=== PATIENT | male | born 1965 | race Caucasian/White ===

== ENCOUNTER 2022-07-10 05:57 | Inpatient (IN) ==
[2022-07-10 06:47] LABS: Basophils # (auto) 0.06 K/uL (0-0.2); Basophils % (auto) 0.6 %; Eosinophils # (auto) 0.18 K/uL (0-0.50); Eosinophils % (auto) 1.7 %; Hematocrit (blood only) 44.4 % (42.0-52.0); Hemoglobin 15.7 g/dl (14.0-18.0); Immature Granulocytes # (auto) 0.05 K/uL (0.01-0.20); Immature Granulocytes % (auto) 0.5 %; Lymphocytes # (auto) 1.95 K/uL (1.2-3.4); Mean Corpuscular Hemoglobin 32.4 pg (25.0-34.0); Mean Corpuscular Hgb Conc 35.4 g/dL (32.0-36.0); Mean Corpuscular Volume 91.5 fL (80.0-100.0); Mean Platelet Volume 7.9 fL (9.4-12.4); Monocytes # (auto) 1.05 K/uL (0.11-0.59); Monocytes % (auto) 9.7 %; Neutrophils # (auto) 7.54 K/uL (1.40-6.50); Neutrophils % (auto) 69.5 %; Platelet Count 346 K/uL (130-400); RDW Coefficient of Variation 12.8 % (11.5-14.5); RDW Standard Deviation 42.8 fL (36.4-46.3); Red Blood Count 4.85 M/uL (4.70-6.10); White Blood Count 10.83 K/ul (4.8-10.8)
[2022-07-10] MEDS ORDERED: SODIUM CHLORIDE 0.9% 1000ML 1,000 ML IV ONE (06:48)
[2022-07-10] MEDS ORDERED: dexAMETHasone**PF** 10 MG/ML VIAL IV ONE (06:48)
[2022-07-10] MEDS ORDERED: KETOROLAC TROMETHAMINE 15 MG/ML VIAL IV STA (06:48)
[2022-07-10] MEDS ORDERED: ACETAMINOPHEN 1,000 MG/100 ML VIAL IV STA (06:51)
[2022-07-10] MEDS ORDERED: AMPICILLIN/SULBACTAM SOD 3,000 MG in 0.9 % SODIUM CHLORIDE 100 ML IV STA (06:51)
--- NOTE | 2022-07-10 06:53 | XRay Report ---
XR chest 1V portable CLINICAL HISTORY: Chest pain, nonspecific COMPARISON STUDY: No previous studies for comparison. FINDINGS: Lung volumes are normal. Lungs are clear. There is no pneumothorax or pleural effusion. Car diac size is normal. Mediastinal contours are normal. There is no evidence for pulmonary edema. IMPRESSION: No acute cardiopulmonary findings. ACT 112: Negative or not required by law. Electronically signed by: Juan Kerr M.D. 07/10/2022 6:52 AM
[2022-07-10 07:06] LABS: Albumin Globulin Ratio 1.3 (0.9-2); Albumin Level 4.4 gm/dl (3.4-5.0); BUN Creatinine Ratio 11.5 (10-20); Bilirubin,Total 0.5 mg/dl (0.2-1.0); Calcium 9.7 mg/dl (8.6-10.3); Creatinine Clr Calc Pharmacy 97.5 ml/min; Est GFR (African American) 116.1 ml/min; Est GFR (Non-African American) 100.2 ml/min; Globulin 3.4 gm/dl (2.5-4.0); Potassium 3.2 mmol/L (3.5-5.1); Total Protein 7.8 gm/dl (6.0-8.3)
[2022-07-10 07:12] LABS: Troponin I High Sensitivity 4.2 pg/ml (0-20)
[2022-07-10 07:14] LABS: INR 0.9 (0.9-1.1); Partial Thromboplastin Time 28.9 Seconds (21.0-31.0); Prothrombin Time 10.3 Seconds (9.0-12.0)
[2022-07-10 07:23] LABS: D Dimer 760 ug/L FEU (0-500)
[2022-07-10] MEDS ORDERED: OPTIRAY 320 500ml IV ONE (07:50)
--- NOTE | 2022-07-10 07:53 | Emergency Department Note ---
Impression & Plan Acute osteomyelitis of maxilla, Atypical chest pain, Abscess, dental ED Provider Note NAME: JEANNE WARD AGE: 56 SEX: M ARRIVES VIA: Walk-In INFORMANT: Patient ED PROVIDER(S): Alberto Smith MD CHIEF COMPLAINT: Chest pain, dental pain/infection PLAN: Disposition: Admit MEDICAL DECISION MAKING: The patient is a pleasant 56-year-old gentleman with a past medical history of who presents to the emergency department via walk-in for evaluation of constant substernal chest pain that began last night in the setting of having worsening dental pain for the past 4 days where he was seen by urgent care yesterday and started on antibiotics and reports he was told to come to emergency department if he were to have worsening pain, swelling which he feels has occurred. He denies any fevers, nausea, vomiting, diarrhea or urinary symptoms. The patient reports that he has a schedule appointment with a dentist on July 18. He does report a history of acid reflux but has not had issues in some time. This is more when he used to chew tobacco regularly. The patient denies any history of IV drug use or drug use otherwise. On my evaluation the patient is uncomfortable but no acute distress, afebrile with stable vital signs. He appears clinically dry. He has poor dentition with all remaining teeth remnants with extensive decay and with moderate upper and lower anterior gingival edema/fluctuance. There is no oropharyngeal edema, tongue elevation or trismus. EKG without overt acute ischemia. CXR negative for acute cardiopulmonary process. WBC 10.8K with neutrophil predominance without left shift. H/H and platelets within normal limits. Chemistry without metabolic acidosis. Electrolytes and LFTs unremarkable. Initial high-sensitivity troponin 6.2, within normal limits. Lipase within normal limits. D-dimer was elevated at 760, ordered from triage critical pathways. COVID-19 RNA, RHONDA test was negative. CT of the chest was negative for PE. Emphysema is noted. Incidental lung nodule present. CT of the face demonstrates extensive odontogenic disease with numerous dental caries and periapical abscesses. In particular, note is made of a 1.7 x 1.4 cm focus of bony erosion within the left anterior maxilla with associated left maxillary central and lateral incisors that may reflect periapical abscess as well as the possibility of osteomyelitis. A 1.5 x 1 cm abscess anterior to the left maxilla is adjacent. The patient was treated with IV fluid hydration, APAP, Toradol, dexamethasone and IV Unasyn. Case was discussed with Dr. Trevino, [facility] surgery. Appreciate consultation and recommendations. He did evaluate the patient at the bedside and recommends admission to medicine hospitalist service for IV antibiotics and he will reassess the patient tomorrow to assess surgical plan. Patient is also in agreement with this plan. Case was discussed with Chantel Swenson [facility] with Dr. Kelly [facility] hospitalist, who will evaluate the patient for admission. Triage Nursing notes reviewed and agree them. Prior/outside medical records reviewed Vital Signs: reviewed Differential diagnosis: Dental abscess, osteomyelitis, pharyngitis, [employer]IT[employer]IATE, RPA, ACS, PE considered among others. ER treatment provided: See below. Diagnostics interpreted by me: ECG: Normal sinus rhythm with sinus arrhythmia, 91 bpm, no ectopy, no overt ST elevation or depression, QTc 420, QRS 72. Cardiac Monitoring: An order for continuous cardiac monitoring was placed and demonstrated Normal sinus rhythm with sinus arrhythmia, 91 bpm, no ectopy Laboratory studies: See below Imaging studies: See below Consultation(s): Dr. Trevino, [facility] surgery Chantel Swenson [facility] with Dr. Kelly [facility] hospitalist HPI: The patient is a pleasant 56-year-old gentleman with a past medical history of who presents to the emergency department via walk-in for evaluation of constant substernal chest pain that began last night in the setting of having worsening dental pain for the past 4 days where he was seen by urgent care yesterday and started on antibiotics and reports he was told to come to emergency department if he were to have worsening pain, swelling which he feels has occurred. He denies any fevers, nausea, vomiting, diarrhea or urinary symptoms. The patient reports that he has a schedule appointment with a dentist on July 18. He does report a history of acid reflux but has not had issues in some time. This is more when he used to chew tobacco regularly. The patient denies any history of IV drug use or drug use otherwise. ROS: See above HPI for pertinent positives & negatives. A total of 10 systems reviewed and were otherwise negative. VITALS:See Below PHYSICAL EXAMINATION: GENERAL: Awake, alert, uncomfortable-appearing, in no distress HENT: Normocephalic, atraumatic. Poor dentition with all remaining teeth remnants with extensive decay and with moderate upper and lower anterior gingival edema/fluctuance. There is no oropharyngeal edema, tongue elevation or trismus. EYES: Normal conjunctiva. Sclera non-icteric. NECK: Supple. No nuchal rigidity. FROM. No JVD. RESPIRATORY: Clear to auscultation. CARDIAC: Regular rate, normal rhythm. Extremities warm and well perfused. Pulses equal. ABDOMEN: Soft, non-distended. No tenderness to palpation. No rebound or guarding. No masses. RECTAL: Deferred. MUSCULOSKELETAL: Chest examination reveals no tenderness. The back is symmetric al on inspection without obvious abnormality. There is no CVA tenderness to palpation. No joint edema. LOWER EXTREMITIES: Calves are equal size bilaterally and non-tender. No edema. No discoloration. NEURO: Normal sensorium. No sensory or motor deficits noted. SKIN: No rash or jaundice noted. ED COURSE: Critical Care: I have personally spent greater than 35 minutes of critical care time in the direct management of this patient. This includes bedside care, interpretation of diagnostic studies, and testing, discussion with consultants, patient, and family members, and other required patient management activities. This 35 minutes is in excess of all separately billable procedures. Alberto Smith MD Past Med/Surg History Medical History GERD (gastroesophageal reflux disease) Tobacco use disorder Family History Other Family history non-contributory Social History Smoking Status: Current every day smoker Cigarettes Per Day: 30; Do You Dip or Chew Tobacco: No; Tobacco Cessation Education Requested by Patient: No Hx Alcohol Use: Yes Alcohol type: beer Hx Substance Use: No Preferred Language: Wallisian Vascular Physician Required: No Current Living Situation: Significant Other Current Living Situation Comment: House w/ stairs to cellar Feels Safe at Home: Yes Safety Concerns: Feels Safe At This Time Assistive Devices: Glasses Assistive Devices Comment: reading glasses Allergies Allergies Allergy/AdvReac Type Severity Reaction Status Date / Time No Known Allergies Allergy Unverified 07/10/22 08:48 Home Meds Home Medications Medication Instructions Recorded Confirmed penicillin V potassium 500 mg 500 mg PO BID 07/10/22 07/10/22 tablet Results & Data (ED) Vital Signs Vital Signs - 24 hr 07/10/22 06:01 07/10/22 06:23 07/10/22 06:25 Temperature 36.3 C L Temperature Source Temporal Artery Scan Pulse Rate 90 87 Pulse Rate from SpO2 Sensor Respiratory Rate 22 Respiratory Effort / Characteristics Non-Labored Blood Pressure 132/77 Blood Pressure Mean 95 Pulse Oximetry 97 98 Oxygen Delivery Method Room Air Room Air Sepsis Recent Fever Within 48 Hours No Sepsis New/Unexplained Change in Mental Status No Sepsis Action Taken by Nursing No Action Required 07/10/22 07:00 07/10/22 07:10 07/10/22 07:20 Temperature Temperature Source Pulse Rate 74 70 72 Pulse Rate from SpO2 Sensor 77 70 73 Respiratory Rate 19 20 21 Respiratory Effort / Characteristics Blood Pressure Blood Pressure Mean Pulse Oximetry 98 98 100 Oxygen Delivery Method Sepsis Recent Fever Within 48 Hours Sepsis New/Unexplained Change in Mental Status Sepsis Action Taken by Nursing 07/10/22 07:53 07/10/22 07:53 07/10/22 10:15 Temperature Temperature Source Pulse Rate 68 68 Pulse Rate from SpO2 Sensor Respiratory Rate 21 Respiratory Effort / Characteristics Blood Pressure 127/65 Blood Pressure Mean 85 Pulse Oximetry Oxygen Delivery Method Sepsis Recent Fever Within 48 Hours Sepsis New/Unexplained Change in Mental Status Sepsis Action Taken by Nursing Laboratory Data Attestation: I reviewed the patient's lab results. 07/10/22 06:20 07/10/22 06:20 Lab Results 07/10/22 07/10/22 07/10/22 Range/Units 06:20 06:20 06:20 WBC 10.83 H (4.8-10.8) K/ul RBC 4.85 (4.70-6.10) M/uL Hgb 15.7 (14.0-18.0) g/dl Hct 44.4 (42.0-52.0) % MCV 91.5 (80.0-100.0) fL MCH 32.4 (25.0-34.0) pg MCHC 35.4 (32.0-36.0) g/dL RDW Std Deviation 42.8 (36.4-46.3) fL RDW Coeff of Alisson 12.8 (11.5-14.5) % Plt Count 346 (130-400) K/uL MPV 7.9 L (9.4-12.4) fL Immature Gran % (Auto) 0.5 % Neut % (Auto) 69.5 % Lymph % (Auto) 18.0 % [place] % (Auto) 9.7 % Eos % (Auto) 1.7 % Baso % (Auto) 0.6 % Neut # (Auto) 7.54 H (1.40-6.50) K/uL Lymph # (Auto) 1.95 (1.2-3.4) K/uL [place] # (Auto) 1.05 H (0.11-0.59) K/uL Eos # (Auto) 0.18 (0-0.50) K/uL Baso # (Auto) 0.06 (0-0.2) K/uL Immature Gran # (Auto) 0.05 (0.01-0.20) K/uL PT 10.3 (9.0-12.0) Seconds INR 0.9 (0.9-1.1) APTT 28.9 (21.0-31.0) Seconds PTT Ratio 1.0 D-Dimer 760 H* (0-500) ug/L FEU Sodium 142 (136-145) mmol/L Potassium 3.2 L (3.5-5.1) mmol/L Chloride 104 (98-107) mmol/L Carbon Dioxide 29 (21-32) mmol/L Anion Gap 9 (3-11) BUN 9 (6-23) mg/dl Creatinine 0.78 (0.6-1.4) mg/dl Est Cr Clr Drug Dosing 97.5 ml/min Est GFR ( Amer) 116.1 ml/min Est GFR (Non-Af Amer) 100.2 ml/min BUN/Creatinine Ratio 11.5 (10-20) Glucose 92 (70-99(Fasting)) mg/dl Calcium 9.7 (8.6-10.3) mg/dl Total Bilirubin 0.5 (0.2-1.0) mg/dl AST 17 (13-39) U/L ALT 11 (7-52) U/L Alkaline Phosphatase 125 H (34-104) U/L Troponin I High Sens 4.2 (0-20) pg/ml Total Protein 7.8 (6.0-8.3) gm/dl Albumin 4.4 (3.4-5.0) gm/dl Globulin 3.4 (2.5-4.0) gm/dl Albumin/Globulin Ratio 1.3 (0.9-2) Lipase 32 (11-82) U/L SARS-CoV-2, RNA, NAAT (NEGATIVE) 07/10/22 Range/Units 07:50 WBC (4.8-10.8) K/ul RBC (4.70-6.10) M/uL Hgb (14.0-18.0) g/dl Hct (42.0-52.0) % MCV (80.0-100.0) fL MCH (25.0-34.0) pg MCHC (32.0-36.0) g/dL RDW Std Deviation (36.4-46.3) fL RDW Coeff of Alisson (11.5-14.5) % Plt Count (130-400) K/uL MPV (9.4-12.4) fL Immature Gran % (Auto) % Neut % (Auto) % Lymph % (Auto) % [place] % (Auto) % Eos % (Auto) % Baso % (Auto) % Neut # (Auto) (1.40-6.50) K/uL Lymph # (Auto) (1.2-3.4) K/uL [place] # (Auto) (0.11-0.59) K/uL Eos # (Auto) (0-0.50) K/uL Baso # (Auto) (0-0.2) K/uL Immature Gran # (Auto) (0.01-0.20) K/uL PT (9.0-12.0) Seconds INR (0.9-1.1) APTT (21.0-31.0) Seconds PTT Ratio D-Dimer (0-500) ug/L FEU Sodium (136-145) mmol/L Potassium (3.5-5.1) mmol/L Chloride (98-107) mmol/L Carbon Dioxide (21-32) mmol/L Anion Gap (3-11) BUN (6-23) mg/dl Creatinine (0.6-1.4) mg/dl Est Cr Clr Drug Dosing ml/min Est GFR ( Amer) ml/min Est GFR (Non-Af Amer) ml/min BUN/Creatinine Ratio (10-20) Glucose (70-99(Fasting)) mg/dl Calcium (8.6-10.3) mg/dl Total Bilirubin (0.2-1.0) mg/dl AST (13-39) U/L ALT (7-52) U/L Alkaline Phosphatase (34-104) U/L Troponin I High Sens (0-20) pg/ml Total Protein (6.0-8.3) gm/dl Albumin (3.4-5.0) gm/dl Globulin (2.5-4.0) gm/dl Albumin/Globulin Ratio (0.9-2) Lipase (11-82) U/L SARS-CoV-2, RNA, NAAT NEGATIVE (NEGATIVE) Administered Medications Acetaminophen (Acetaminophen 500 Mg Tab) 1,000 mg PO Q8H PRN PRN Reason: pain/fever Stop: 08/09/22 13:59 Last Admin: 07/10/22 19:36 Dose: 1,000 mg Documented By: LYNDA Ampicillin Sodium/Sulbactam Sodium 3,000 mg/ Sodium Chloride 108 mls @ 200 mls/hr IV Q6H LORRAINE; Protocol Stop: 08/21/22 13:59 Last Infusion: 07/10/22 20:22 Dose: 0 mls/hr Documented By: Admin: 07/10/22 19:37 Dose: 200 mls/hr Documented By: Infusion: 07/10/22 15:14 Dose: 0 mls/hr Documented By: Admin: 07/10/22 14:44 Dose: 200 mls/hr Documented By: ELPIDIO Discontinued Medications Dexamethasone Sodium Phosphate (DexamethasonePf 10 Mg/Ml Vial) 10 mg IV NOW ONE Stop: 07/10/22 06:49 Last Admin: 07/10/22 07:14 Dose: 10 mg Documented By: MES Sodium Chloride (Nss 1000ml) 1,000 mls @ 999 mls/hr IV .Q1H1M ONE Stop: 07/10/22 07:48 Last Infusion: 07/10/22 08:21 Dose: 0 mls/hr Documented By: Admin: 07/10/22 07:14 Dose: 999 mls/hr Documented By: MELI Ampicillin Sodium/Sulbactam Sodium 3,000 mg/ Sodium Chloride 108 mls @ 200 mls/hr IV NOW STA; Protocol Stop: 07/10/22 07:23 Last Infusion: 07/10/22 08:30 Dose: 0 mls/hr Documented By: Admin: 07/10/22 07:54 Dose: 200 mls/hr Documented By: MELI Acetaminophen (Ofirmev) 1,000 mg in 100 mls @ 400 mls/hr IV NOW STA Stop: 07/10/22 07:05 Last Infusion: 07/10/22 07:36 Dose: 0 mls/hr Documented By: Admin: 07/10/22 07:14 Dose: 400 mls/hr Documented By: MELI Ioversol (Optiray 320 500ml) 120 ml IV ONCE ONE Stop: 07/10/22 07:51 Last Admin: 07/10/22 07:50 Dose: 120 ml Documented By: SARAH Ketorolac Tromethamine (Ketorolac Tromethamine 15 Mg/Ml Vial) 15 mg IV NOW STA Stop: 07/10/22 06:49 Last Admin: 07/10/22 07:14 Dose: 15 mg Documented By: MELI Potassium Chloride (Potassium Chloride Crtab 20 Meq Tabcr) 40 meq PO NOW STA Stop: 07/10/22 10:23 Last Admin: 07/10/22 10:44 Dose: 40 meq Documented By: MELI Imaging Data Radiologist's Impression: Chest X-Ray 07/10/22 06:19 XR chest 1V portable CLINICAL HISTORY: Chest pain, nonspecific COMPARISON STUDY: No previous studies for comparison. FINDINGS: Lung volumes are normal. Lungs are clear. There is no pneumothorax or pleural effusion. Cardiac size is normal. Mediastinal contours are normal. There is no evidence for pulmonary edema. IMPRESSION: No acute cardiopulmonary findings. ACT 112: Negative or not required by law. Electronically signed by: Juan Kerr M.D. 07/10/2022 6:[address] 07/10/22 06:53 CT facial bones w con CLINICAL HISTORY: Dental pain. Evaluate dental abscesses. COMPARISON STUDY: No previous studies for comparison. TECHNIQUE: Axial images of the face were obtained following intravenous injection of 120 cc Optiray 320 IV. Sagittal and coronal reconstructions were viewed. Automated exposure control was utilized for the study. A dose lowering technique was utilized adhering to the principles of ALARA. FINDINGS: Visualized portions of the intracranial contents are unremarkable. Orbits are unremarkable. The mastoid air cells are clear. There is mild sinus mucosal thickening. The parotid and submandibular glands are unremarkable. Epiglottis is normal. There is no upper cervical lymphadenopathy. Numerous dental caries are noted. There are multiple periapical abscesses. Several teeth are absent. Note is made of a focus of bony erosion within the left anterior max illa that measures 1.7 x 1.4 cm, on axial image 289 of 545. This is associated with the left maxillary central and lateral incisors. There is an associated 1.5 x 1 cm rim-enhancing fluid collection anterior to the left aspect of the maxilla consistent with a soft tissue abscess. No additional soft tissue abscesses are present. There is extensive adjacent inflammation which extends anterior to the maxilla to the base of the nose. IMPRESSION: 1. Extensive odontogenic disease with numerous dental caries and periapical abscesses. 2. Focus of bony erosion measuring 1.7 x 1.4 cm within the left anterior maxilla associated with the left maxillary central and lateral incisors. Although this could reflect a periapical abscess, the CT appearance raises the possibility of osteomyelitis. Adjacent 1.5 x 1 cm abscess anterior to the left maxilla. No additional soft tissue abscesses. Extensive adjacent inflammation. ACT 112: Negative or not required by law. Electronically signed by: Juan Kerr M.D. 07/10/2022 8:17 AM Chest CTA 07/10/22 07:37 CHEST CTA [address] PULMONARY ARTER[address] DOSE: 1022.84 mGy.cm HISTORY: Left-sided chest pain, elevated D-dimer, r/o PE TECHNIQUE: Multiaxial CT images of the chest were performed following the intravenous administration of contrast to evaluate the pulmonary arteries. Maximal intensity projection images were also obtained. A dose lowering technique was utilized adhering to the principles of ALARA. COMPARISON STUDY: None. FINDINGS: No evidence for an aortic dissection or pulmonary embolus. No mediastinal or hilar lymphadenopathy. The visualized liver, spleen, and adrenal glands are unremarkable. The heart is top normal in size. No pleural or pericardial effusions. Normal esophagus. No acute fractures identified. No pneumothorax. Trace mucoid material within the mainstem bronchus. Mild central bronchial wall thickening. There is moderate emphysema. There are biapical irregular densities most pronounced on the right which measures 1.7 cm. These fa vor scarring. Otherwise, no focal lung consolidations to suggest pneumonia. No evidence for pulmonary edema. There is a 5 mm nodule within the right middle lobe on image 133. IMPRESSION: 1. No evidence for a pulmonary embolus. 2. Moderate emphysema. 3. A 5 mm indeterminate pulmonary nodule within the right middle lobe. Follow-up recommended below. 4. Biapical irregular densities with the largest on the right measuring 1.7 cm. This favors scarring. However, [address] follow-up recommended to ensure stability. Please refer to below summary of Fleischner criteria recommendations for follow- up of incidental CT nodules (Анна Davis, Guidelines for management of small pulmonary nodules detected on CT scans: A statement from the Fleischner Society, Radiology 237: [id number].) SOLID NODULES Solitary nodule size: <6 mm * Low risk patients: no follow-up needed * high risk patients: optional CT at 12 months Solitary nodule size: 6-8 mm * Low risk patients: follow-up at 6-12 months, then consider further follow-up at 18-24 months * high risk patients: initial follow-up CT at 6-12 months and then at 18-24 months if no change Solitary nodule size: >8 mm * either low or high risk patients - consider follow-up CT at 3 months, and/or CT-PET, and/or biopsy Multiple nodules size: <6 mm * Low risk patients: no routine follow-up * high risk patients: optional CT at 12 months Multiple nodules size: 6-8 mm * Low risk patients: follow-up at 3-6 months, then consider further follow-up at 18-24 months * high risk patients: follow-up at 3-6 months, then at 18-24 months if no change Multiple nodules size: >8 mm * Low risk patients: follow-up at 3-6 months, then consider further follow-up at 18-24 months * high risk patients: follow-up at 3-6 months, then at 18-24 months if no change Note: newly detected indeterminate nodule in persons 35 years of age or older. * Low risk patients: minimal or absent history of smoking and/or other known risk factors * high risk patients: history of smoking or of other known risk factors (e.g. first degree relative with lung cancer, or exposure to asbestos, radon, uranium) * if a nodule up to 8 mm is partly solid or is ground glass further follow-up is required after 24 months to exclude possible slow growing adenocarcinoma ( ANGELIQUE) SUBSOLID NODULES Solitary pure ground-glass nodule * nodule size <6 mm - no CT follow-up required * nodule size >=6 mm - follow-up CT at 6-12 months, then every 2 years until 5 years Solitary part-solid nodule * nodule size <6 mm - no CT follow-up required * nodule size >=6 mm - follow-up CT at 3-6 months. If unchanged, and solid component remains <6 mm, then annual follow-up for 5 years Multiple subsolid nodules * nodule size <6 mm - follow-up CT at 3-6 months, consider further follow-up at 2 and 4 years if stable * nodule size >=6 mm - follow-up CT at 3-6 months, subsequent management based on the most suspicious nodule(s) ACT 112: Negative or not required by law. Electronically signed by: Henry Aranda M.D. 07/10/2022 8:54 AM Discharge Plan Visit Data Chief Complaint: Chest Pain Stated Complaint: CHEST PAIN, TOOTH PAIN ED Provider: Alberto Smith Discharge Problem: Acute osteomyelitis of maxilla, Atypical chest pain, Abscess, dental Patient Disposition: Admitted As Inpatient Discharge Instructions Interventions: ED Discharge Assessment Last Done: 07/10/22 11:02
--- NOTE | 2022-07-10 08:19 | CT Scan Report ---
CT facial bones w con CLINICAL HISTORY: Dental pain. Evaluate dental abscesses. COMPARISON STUDY: No previous studies for comparison. TECHNIQUE: Axial images of the face were obtained following intravenous injection of 120 cc Optiray 3 20 IV. Sagittal and coronal reconstructions were viewed. Automated exposure control was utilized for the study. A dose lowering technique was utilized adhering to the principles of ALARA. FINDINGS: Visualized portions of the intracranial contents are unremarkable. Orbits are unremarkable. The mastoid air cells are clear. There is mild sinus mucosal thickening. The parotid and submandibul ar glands are unremarkable. Epiglottis is normal. There is no upper cervical lymphadenopathy. Numerou s dental caries are noted. There are multiple periapical abscesses. Several teeth are absent. Note is made of a focus of bony erosion within the left anterior maxilla that measures 1.7 x 1.4 cm, on axia l image 289 of 545. This is associated with the left maxillary central and lateral incisors. There is an associated 1.5 x 1 cm rim-enhancing fluid collection anterior to the left aspect of the maxilla c onsistent with a soft tissue abscess. No additional soft tissue abscesses are present. There is exten sive adjacent inflammation which extends anterior to the maxilla to the base of the nose. IMPRESSION: 1. Extensive odontogenic disease with numerous dental caries and periapical abscesses. 2. Focus of bony erosion measuring 1.7 x 1.4 cm within the left anterior maxilla associated with the left maxillary central and lateral incisors. Although this could reflect a periapical abscess, the CT appearance raises the possibility of osteomyelitis. Adjacent 1.5 x 1 cm abscess anterior to the left maxilla. No additional soft tissue abscesses. Extensive adjacent inflammation. ACT 112: Negative or not required by law. Electronically signed by: Juan Kerr M.D. 07/10/2022 8:17 AM
--- NOTE | 2022-07-10 08:57 | CT Scan Report ---
CHEST CTA for PULMONARY ARTERIES CT DOSE: 1022.84 mGy.cm HISTORY: Left-sided chest pain, elevated D-dimer, r/o PE TECHNIQUE: Multiaxial CT images of the chest were performed following the intravenous administration of contrast to evaluate the pulmonary arteries. Maximal intensity projection images were also obtaine d. A dose lowering technique was utilized adhering to the principles of ALARA. COMPARISON STUDY: None. FINDINGS: No evidence for an aortic dissection or pulmonary embolus. No mediastinal or hilar lymphade nopathy. The visualized liver, spleen, and adrenal glands are unremarkable. The heart is top normal i n size. No pleural or pericardial effusions. Normal esophagus. No acute fractures identified. No pneu mothorax. Trace mucoid material within the mainstem bronchus. Mild central bronchial wall thickening. There is moderate emphysema. There are biapical irregular densities most pronounced on the right whi ch measures 1.7 cm. These favor scarring. Otherwise, no focal lung consolidations to suggest pneumoni a. No evidence for pulmonary edema. There is a 5 mm nodule within the right middle lobe on image 133. IMPRESSION: 1. No evidence for a pulmonary embolus. 2. Moderate emphysema. 3. A 5 mm indeterminate pulmonary nodule within the right middle lobe. Follow-up recommended below. 4. Biapical irregular densities with the largest on the right measuring 1.7 cm. This favors scarring. However, [address] follow-up recommended to ensure stability. Please refer to below summary of Fleischner criteria recommendations for follow-up of incidental CT n odules (Анна Davis, Guidelines for management of small pulmonary nodules detected on CT scans: A sta tement from the Fleischner Society, Radiology 237: [phone].) SOLID NODULES Solitary nodule size: <6 mm * Low risk patients: no follow-up needed * high risk patients: optional CT at 12 months Solitary nodule size: 6-8 mm * Low risk patients: follow-up at 6-12 months, then consider further follow-up at 18-24 months * high risk patients: initial follow-up CT at 6-12 months and then at 18-24 months if no change Solitary nodule size: >8 mm * either low or high risk patients - consider follow-up CT at 3 months, and/or CT-PET, and/or biopsy Multiple nodules size: <6 mm * Low risk patients: no routine follow-up * high risk patients: optional CT at 12 months Multiple nodules size: 6-8 mm * Low risk patients: follow-up at 3-6 months, then consider further follow-up at 18-24 months * high risk patients: follow-up at 3-6 months, then at 18-24 months if no change Multiple nodules size: >8 mm * Low risk patients: follow-up at 3-6 months, then consider further follow-up at 18-24 months * high risk patients: follow-up at 3-6 months, then at 18-24 months if no change Note: newly detected indeterminate nodule in persons 35 years of age or older. * Low risk patients: minimal or absent history of smoking and/or other known risk factors * high risk patients: history of smoking or of other known risk factors (e.g. first degree relative with lung cancer, or exposure to asbestos, radon, uranium) * if a nodule up to 8 mm is partly solid or is ground glass further follow-up is required after 24 m onths to exclude possible slow growing adenocarcinoma (ANGELIQUE) SUBSOLID NODULES Solitary pure ground-glass nodule * nodule size <6 mm - no CT follow-up required * nodule size >=6 mm - follow-up CT at 6-12 months, then every 2 years until 5 years Solitary part-solid nodule * nodule size <6 mm - no CT follow-up required * nodule size >=6 mm - follow-up CT at 3-6 months. If unchanged, and solid component remains <6 mm, then annual follow-up for 5 years Multiple subsolid nodules * nodule size <6 mm - follow-up CT at 3-6 months, consider further follow-up at 2 and 4 years if sta ble * nodule size >=6 mm - follow-up CT at 3-6 months, subsequent management based on the most suspiciou s nodule(s) ACT 112: Negative or not required by law. Electronically signed by: Henry Aranda M.D. 07/10/2022 8:54 AM
[2022-07-10] MEDS ORDERED: POTASSIUM CHLORIDE CRTAB 20 MEQ TABCR PO STA (10:22)
--- NOTE | 2022-07-10 10:43 | History & Physical Report ---
Date of Service July 10, 2022 Assessment & Plan (1) Acute osteomyelitis of maxilla: Plan: Acute/unstable - mod to high risk - Admit to med/surg - Dental bite sized/soft diet ordered, NPO after MN - Consult Dr. Trevino, case d/w him, appreciate assistance - Will need I&D of abscess and likely bone debridement with culture to guide abx - Consider ID consult to assist in guidance for duration and choice of abx - ESR and CRP ordered/pending - For now, empiric Unasyn will be continued at 3g IV q6 - Stat blood cultures have been ordered as not ordered by ED prior to abx administration - Reviewed cbc, very mild leukocytosis with left shift, repeat ordered for tomor row AM - Pain control ordered with PO APAP 1st line, Toradol 2nd line, Morphine 3rd line (2) Chest pain: Plan: Acute/stable - EKG with acute changes - Initial HS trop 4.7, 2 hour repeat was not drawn in ED - Repeat hs trop ordered stat and results pending, overall low index of suspicion for cardiac etiology - Ddimer elevated at 760 but CTA chest negative for PE - Pt noted improvement at time of assessment (3) Hypokalemia: Plan: Acute/unstable - Chemistry reviewed, potassium 3.2, oral replacement ordered w/ 40meq po KCl - Repeat chemistry ordered for tomorrow AM (4) Pulmonary nodules: Plan: Unknown chronicity - 5 mm nodule in RL and biapical irreg densities measuring up to 1.7 cm - Will require close f/u with pulm nodule clinic upon discharge given his smoking history (5) Tobacco use disorder: Plan: Chronic - Counseled on importance of cessation - Nicotine patch will be provided Plan As outlined above. Repeat labs ordered for tomorrow AM. Added Lovenox for DVT ppx. Above plan of care has been d/w Dr. Kelly who will also see and evaluate this patient. Further orders will be implemented as warranted. History of Present Illness Chief Complaint: chest pain Primary Care Provider: NO PCP Isiah Almazan is a 56 yo M with no significant pmhx and takes no medications other than a baby aspirin who presented to the ER today c/o chest pain that started this morning. He states that it was primarily on the left side of his chest, no alleviating or aggravating factors and was not associated with dyspnea, nausea, or diaphoresis. In addition to the chest pain, he has been having worsening dental pain around the area of his left upper incisor tooth. He has been having dental issues for "several years" and cannot recall the last time he went to a dentist. Dental pain has been worse over the last 4 days. He was seen at urgent care yesterday and started on a course of oral antibiotics (Pen V K) and told to go to the ER if pain worsens. He underwent a facial CT with contrast which demonstrated extensive odontogenic disease with numerous dental caries and periapical abscesses in addition to a jon focus of bony erosion concerning for osteo as well as an adjacent 1.5 x 1cm abscess. Case has been d/w Dr. Trevino who has seen the patient and is going to reassess this afternoon. Pt has been medicated with a dose of IV APAP, Toradol, Decadron as well as Unasyn and has been referred to the hospitalist service for admission. Allergies Allergy/AdvReac Type Severity Reaction Status Date / Time No Known Allergies Allergy Unverified 07/10/22 08:48 Home Medications Medication Instructions Recorded Confirmed Type penicillin V potassium 500 mg 500 mg PO BID 07/10/22 07/10/22 History tablet Past Med/Surg History Medical History GERD (gastroesophageal reflux disease) Tobacco use disorder Family History Other Family history non-contributory Social History Smoking Status: Current every day smoker Cigarettes Per Day: 30; Do You Dip or Chew Tobacco: No; Tobacco Cessation Education Requested by Patient: No Hx Alcohol Use: Yes Alcohol type: beer Hx Substance Use: No Preferred Language: Divehi 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 NAD. HENT: Moist mucous membranes. Multiple dental caries/tooth decay. Area of fluctuance above left lateral incisor on mandible, tender to palpation. LUNGS: Clear to auscultation bilaterally. No W/R/R. CARDIOVASCULAR: Regular rate and rhythm. No M/G/R. Results & Data Results & Data Vital Signs (Past 12 Hours) Vital Signs Temp Pulse Resp BP Pulse Ox O2 Del Method 07/10/22 10:15 68 07/10/22 07:53 68 21 07/10/22 07:53 127/65 07/10/22 07:20 72 21 100 07/10/22 07:10 70 20 98 07/10/22 07:00 74 19 98 07/10/22 06:25 98 Room Air 07/10/22 06:23 87 07/10/22 06:01 36.3 C L 90 22 132/77 97 Room Air Laboratory Results 07/10/22 06:20 07/10/22 06:20 Diagnostic Findings Chest X-Ray 07/10/22 06:19 XR chest 1V portable CLINICAL HISTORY: Chest pain, nonspecific COMPARISON STUDY: No previous studies for comparison. FINDINGS: Lung volumes are normal. Lungs are clear. There is no pneumothorax or pleural effusion. Cardiac size is normal. Mediastinal contours are normal. There is no evidence for pulmonary edema. IMPRESSION: No acute cardiopulmonary findings. ACT 112: Negative or not required by law. Electronically signed by: Juan Kerr M.D. 07/10/2022 6:[address] 07/10/22 06:53 CT facial bones w con CLINICAL HISTORY: Dental pain. Evaluate dental abscesses. COMPARISON STUDY: No previous studies for comparison. TECHNIQUE: Axial images of the face were obtained following intravenous injection of 120 cc Optiray 320 IV. Sagittal and coronal reconstructions were viewed. Automated exposure control was utilized for the study. A dose lowering technique was utilized adhering to the principles of ALARA. FINDINGS: Visualized portions of the intracranial contents are unremarkable. Orbits are unremarkable. The mastoid air cells are clear. There is mild sinus mucosal thickening. The parotid and submandibular glands are unremarkable. Epiglottis is normal. There is no upper cervical lymphadenopathy. Numerous dental caries are noted. There are multiple periapical abscesses. Several teeth are absent. Note is made of a focus of bony erosion within the left anterior maxilla that measures 1.7 x 1.4 cm, on axial image 289 of 545. This is associat ed with the left maxillary central and lateral incisors. There is an associated 1.5 x 1 cm rim-enhancing fluid collection anterior to the left aspect of the maxilla consistent with a soft tissue abscess. No additional soft tissue abscesses are present. There is extensive adjacent inflammation which extends anterior to the maxilla to the base of the nose. IMPRESSION: 1. Extensive odontogenic disease with numerous dental caries and periapical abscesses. 2. Focus of bony erosion measuring 1.7 x 1.4 cm within the left anterior maxilla associated with the left maxillary central and lateral incisors. Although this could reflect a periapical abscess, the CT appearance raises the possibility of osteomyelitis. Adjacent 1.5 x 1 cm abscess anterior to the left maxilla. No additional soft tissue abscesses. Extensive adjacent inflammation. ACT 112: Negative or not required by law. Electronically signed by: Juan Kerr M.D. 07/10/2022 8:17 AM Chest CTA 07/10/22 07:37 CHEST [address] PULMONARY ART[address] DOSE: 1022.84 mGy.cm HISTORY: Left-sided chest pain, elevated D-dimer, r/o PE TECHNIQUE: Multiaxial CT images of the chest were performed following the intravenous administration of contrast to evaluate the pulmonary arteries. Maximal intensity projection images were also obtained. A dose lowering technique was utilized adhering to the principles of ALARA. COMPARISON STUDY: None. FINDINGS: No evidence for an aortic dissection or pulmonary embolus. No mediastinal or hilar lymphadenopathy. The visualized liver, spleen, and adrenal glands are unremarkable. The heart is top normal in size. No pleural or pericardial effusions. Normal esophagus. No acute fractures identified. No pneumothorax. Trace mucoid material within the mainstem bronchus. Mild central bronchial wall thickening. There is moderate emphysema. There are biapical irr egular densities most pronounced on the right which measures 1.7 cm. These favor scarring. Otherwise, no focal lung consolidations to suggest pneumonia. No evidence for pulmonary edema. There is a 5 mm nodule within the right middle lobe on image 133. IMPRESSION: 1. No evidence for a pulmonary embolus. 2. Moderate emphysema. 3. A 5 mm indeterminate pulmonary nodule within the right middle lobe. Follow-up recommended below. 4. Biapical irregular densities with the largest on the right measuring 1.7 cm. This favors scarring. However, [address] follow-up recommended to ensure stability. Please refer to summary of Fleischner criteria recommendations for follow-up of incidental CT nodules (Анна Davis, Guidelines for management of small pulmonary nodules detected on CT scans: A statement from the Fleischner Society, Radiology 237: [phone].) Electronically signed by: Henry Aranda M.D. 07/10/2022 8:54 AM Supervising Physician Co-Signing Physician Notes Patient seen and examined, chart reviewed, case discussed with Chantel Herman PA-C and I agree with the assessment and plan as above except as otherwise noted Labs and images reviewed Isiah Almazan is a 56-year-old male who presents with maxillary osteomyelitis requiring OMFS intervention. CT shows 1.7 x 1.4 cm bony erosion of the left maxilla, adjacent abscess suspicious for maxillary osteomyelitis with adjacent abscess. CTA of the chest does not show PE, does show 5 mm indeterminate pulmonary follow-up which will require repeat imaging per Fleischner criteria. Patient is doing well at the bedside, noted that he had chest pain this morning left-sided of his chest which has improved. Does continue of dental pain which is worse when biting down/chewing at his left upper incisor. Breathing is unlabored, chest rise symmetrical. OMFS is consulted, anticipate I&D and abscess drainage. Agree with continuing Unasyn at this time, dexamethasone given in ER, labs trended. Agree with recommendation/management of dental abscess as noted above PG Care Time/CCT Total # of Minutes Spent Total Time Spent with Patient: Total time spent is greater than 50% in coordination of care (as documented) at patient's floor/unit and/or counseling patient: Coding Level of Care Code 69663 INT INP/OBS CARE 3/75MIN Diagnoses Acute osteomyelitis of maxilla M27.2 Chest pain R07.9 Hypokalemia E87.6 Pulmonary nodules R91.8 Tobacco use disorder F17.200
[2022-07-10] MEDS ORDERED: MoRPHine SULFATE 2 MG/ML CARP IV PRN (11:25)
[2022-07-10] MEDS ORDERED: POLYETHYLENE (MIRALAX) 17 GM PACK PO PRN (11:25)
[2022-07-10] MEDS ORDERED: ONDANSETRON INJ 2 MG/ML 2 ML VIAL IV PRN (11:25)
[2022-07-10] MEDS ORDERED: ALUMINUM/MAGNESIUM SUSP 30 ML UDC PO PRN (11:25)
[2022-07-10] MEDS ORDERED: MAGNESIUM HYDROXIDE SUSP 30 ML UDC PO PRN (11:25)
[2022-07-10 11:44] LABS: C Reactive Protein 2.22 mg/dl (0-0.5)
[2022-07-10 11:51] LABS: Troponin I High Sensitivity 3.9 pg/ml (0-20)
[2022-07-10] MEDS ORDERED: KETOROLAC 30 MG/ML VIAL IV PRN (13:00)
[2022-07-10] MEDS ORDERED: ACETAMINOPHEN 500 MG TAB PO PRN (14:00)
[2022-07-10] MEDS: AMPICILLIN/SULBACTAM SOD 3,000 MG in 0.9 % SODIUM CHLORIDE 100 ML IV SCH ×2 (14:44→19:37)
[2022-07-11] MEDS: AMPICILLIN/SULBACTAM SOD 3,000 MG in 0.9 % SODIUM CHLORIDE 100 ML IV SCH ×3 (01:56→13:44)
--- NOTE | 2022-07-11 04:48 | Electrocardiogram Report ---
Test Reason : Blood Pressure : / mmHG Vent. Rate : 091 BPM Atrial Rate : 091 BPM P-R Int : 132 ms QRS Dur : 072 ms QT Int : 342 ms P-R-T Axes : 076 080 059 degrees QTc Int : 420 ms Poor data quality, interpretation may be adversely affected Normal sinus rhythm with sinus arrhythmia No previous ECGs available Confirmed by Ciriol Gauthier ([id number]) on 07/11/2022 4:48:23 AM Referred By: REFERRED SELF Confirmed By:Cirilo Gauthier
[2022-07-11 08:11] LABS: Basophils # (auto) 0.03 K/uL (0-0.2); Basophils % (auto) 0.2 %; Eosinophils # (auto) 0.01 K/uL (0-0.50); Eosinophils % (auto) 0.1 %; Hematocrit (blood only) 41.5 % (42.0-52.0); Immature Granulocytes # (auto) 0.04 K/uL (0.01-0.20); Immature Granulocytes % (auto) 0.3 %; Lymphocytes # (auto) 1.86 K/uL (1.2-3.4); Mean Corpuscular Hemoglobin 31.3 pg (25.0-34.0); Mean Corpuscular Hgb Conc 33.7 g/dL (32.0-36.0); Mean Corpuscular Volume 92.6 fL (80.0-100.0); Mean Platelet Volume 7.9 fL (9.4-12.4); Monocytes # (auto) 1.09 K/uL (0.11-0.59); Monocytes % (auto) 7.1 %; Neutrophils # (auto) 12.41 K/uL (1.40-6.50); Neutrophils % (auto) 80.3 %; Platelet Count 314 K/uL (130-400); RDW Standard Deviation 44.4 fL (36.4-46.3); Red Blood Count 4.48 M/uL (4.70-6.10); White Blood Count 15.44 K/ul (4.8-10.8)
[2022-07-11 08:22] LABS: BUN Creatinine Ratio 23.4 (10-20); Calcium 8.8 mg/dl (8.6-10.3); Creatinine Clr Calc Pharmacy 118.9 ml/min; Est GFR (Non-African American) 108.7 ml/min; Magnesium 1.9 mg/dl (1.7-2.4); Potassium 3.8 mmol/L (3.5-5.1)
--- NOTE | 2022-07-11 08:38 | Oral/Maxillofacial Consult ---
Date of Consultation July 11, 2022 Assessment & Plan (1) Abscess, dental: (2) Acute osteomyelitis of maxilla: History of Present Illness Attending Physician: Flaquita Ryan MD History of Present Illness Oral Maxillofacial Surgery Exam Present Complaint: I have pain/swelling/drainage from my infected teeth. Symptoms have been ongoing for a while. Acute development of upper left facial swelling Oral Exam: Finding--Grossly infected, fractured teeth with tender gingival tissue with deep pocket formation.Teeth are in an abnormal position and removal is clinical indicated. Advanced periodontal disease. Imaging: CT facial bones w con CLINICAL HISTORY: Dental pain. Evaluate dental abscesses. FINDINGS: Visualized portions of the intracranial contents are unremarkable. Orbits are unremarkable. The mastoid air cells are clear. There is mild sinus mucosal thickening. The parotid and submandibular glands are unremarkable. Epiglottis is normal. There is no upper cervical lymphadenopathy. Numerous dental caries are noted. There are multiple periapical abscesses. Several teeth are absent. Note is made of a focus of bony erosion within the left anterior maxilla that measures 1.7 x 1.4 cm, on axial image 289 of 545. This is associated with the left maxillary central and lateral incisors. There is an associated 1.5 x 1 cm rim-enhancing fluid collection anterior to the left aspect of the maxilla consistent with a soft tissue abscess. No additional soft tissue abscesses are present. There is extensive adjacent inflammation which extends anterior to the maxilla to the base of the nose. IMPRESSION: 1. Extensive odontogenic disease with numerous dental caries and periapical abscesses. 2. Focus of bony erosion measuring 1.7 x 1.4 cm within the left anterior maxilla associated with the left maxillary central and lateral incisors. Although this could reflect a periapical abscess, the CT appearance raises the possibility of osteomyelitis. Adjacent 1.5 x 1 cm abscess anterior to the left maxilla. No additional soft tissue abscesses. Extensive adjacent inflammation. see CT scan for details Not convinced that there is an osteomyelitis. Given the poor condition of the teeth i feel that this is al secondary to dental decay and neglect of the teeth . Soft tissue: floor of the mouth, tongue, hard/soft palate, posterior pharyngeal area all with in normal limits, Gross infection all teeth and associated periodontal tissues. Swelling secondary to the multiply infected teeth Radiolucent areas present that represent dental root infection and abscess formation Oral Care: Overall oral care is non existent Occlusion: Class ? TMJ exam: No pop, clicking, pain, good ROM, No history of TMJ injury or dysfunction Periodontal exam: significant advanced periodontal pathology. Head/Neck exam: Neck is supple, FROM, Able to extend and flex neck w/o difficulty, no masses, no abnormalities, no airway issues, no evidence of sleep apnea. Treatment Plan: I would suggest IV antibiotics -- over the course of the last few hours with fluids and antibiotics Kwadwo feels some much better then when I saw him in the ER on AUGUST 09. I feel it would be appropriate to discharge him once he is stable and discharge on oral antibiotics AUGMENTIN 875 x 10 days) He has an appointment already set up with Oral Surgeon Dr Kraig Nelson for his oral surgery needs (full mouth extractions) I reviewed the treatment plan and consent with the patient, he is in agreement with the plan Understanding was expressed. Time was given for questions regarding the surgery, risks and post op care. There is a plan in place for continuation of care. He may be discharged as per medical -- oral antibiotics and pain Meds. All of his teeth are decayed and fractured and removal is indicated IAN--appointment Dr Nelson July 25 Allergies Allergy/AdvReac Type Severity Reaction Status Date / Time No Known Allergies Allergy Unverified 07/10/22 08:48 Home Medications Medication Instructions Recorded Confirmed Type penicillin V potassium 500 mg 500 mg PO BID 07/10/22 07/10/22 History tablet Patient History Medical History GERD (gastroesophageal reflux disease) Tobacco use disorder Family History Other Family history non-contributory Social History Smoking Status: Current every day smoker Cigarettes Per Day: 30; Do You Dip or Chew Tobacco: No; Tobacco Cessation Education Requested by Patient: No Hx Alcohol Use: Yes Alcohol type: beer Hx Substance Use: No 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 Current Living Situation: Significant Other Current Living Situation Comment: House w/ stairs to cellar Feels Safe at Home: Yes Safety Concerns: Feels Safe At This Time Assistive Devices: Glasses Assistive Devices Comment: reading glasses Results & Data Vital Signs (Past 12 Hours) Vital Signs Temp Pulse Resp BP Pulse Ox O2 Del Method 07/11/22 07:56 36.6 C 57 L 16 117/72 94 Room Air 07/10/22 20:37 36.3 C L 63 18 123/72 97 Room Air PG Care Time/CCT Total # of Minutes Spent Total Time Spent with Patient: Total time spent is greater than 50% in coordination of care (as documented) at patient's floor/unit and/or counseling patient: Coding Level of Care Code 56901 IN/OBS CONSULT LVL 3,45M Diagnoses Abscess, dental K04.7 Acute osteomyelitis of maxilla M27.2
[2022-07-11] MEDS ORDERED: NICOTINE 21 MG/24 HR TDSY TD SCH (09:00)
[2022-07-11] MEDS ORDERED: ENOXAPARIN INJ 40 MG/0.4 ML SYR SQ SCH (09:00)
--- NOTE | 2022-07-11 14:32 | Discharge Summary ---
Date of Service July 11, 2022 Admission HPI Per Admitting Provider Isiah Almazan is a 56 yo M with no significant pmhx and takes no medications other than a baby aspirin who presented to the ER today c/o chest pain that started this morning. He states that it was primarily on the left side of his chest, no alleviating or aggravating factors and was not associated with dyspnea, nausea, or diaphoresis. In addition to the chest pain, he has been having worsening dental pain around the area of his left upper incisor tooth. He has been having dental issues for "several years" and cannot recall the last time he went to a dentist. Dental pain has been worse over the last 4 days. He was seen at urgent care yesterday and started on a course of oral antibiotics (Pen V K) and told to go to the ER if pain worsens. He underwent a facial CT with contrast which demonstrated extensive odontogenic disease with numerous dental caries and periapical abscesses in addition to a jon focus of bony erosion concerning for osteo as well as an adjacent 1.5 x 1cm abscess. Case has been d/w Dr. Trevino who has seen the patient and is going to reassess this afternoon. Pt has been medicated with a dose of IV APAP, Toradol, Decadron as well as Unasyn and has been referred to the hospitalist service for admission. Principal Diagnosis Dental abscess Discharge Exam Constitutional WD/WN, vitals as above ENMT fractured teeth, erythematous and swollen gums, no drainage, no facial swelling or neck swelling Discharge Data Allergies Allergy/AdvReac Type Severity Reaction Status Date / Time No Known Allergies Allergy Unverified 07/10/22 08:48 Consultations 07/10/22 09:42 ED Decision to Admit Stat 07/10/22 10:44 Consult Oromaxillofacial Surgery Stat Ordered Studies 07/10/22 06:53 CT face [CT facial bones w con] Stat 07/10/22 07:37 CT angio chest PE protocol Stat Hospital Course (1) Acute osteomyelitis of maxilla: Possible but could be apical abscess With numerous fractured teeth and severe dental disease as per OMFS, needs full dental extraction. No I&D needed here Much improved with IV Unasyn, pain improved, swelling improved, no fevers. WBC count remains elevated but clinically improved -dc to home with po Augmentin 875mg po bid x 10 more days -continue oft diet on discharge -keep scheduled f/u appt with your oral surgeon in 2 weeks (2) Chest pain: resolved - EKG with acute changes - Initial HS trop 4.7 and repeat 3.9 -overall low index of suspicion for cardiac etiology - Ddimer elevated at 760 but CTA chest negative for PE (3) Hypokalemia: replace and resolved (4) Pulmonary nodules: Unknown chronicity but does have a h/o right lung PTX from trauma in 1997 requiring thoracotomy - 5 mm nodule in RL and biapical irreg densities measuring up to 1.7 cm - Will require close f/u with pulm nodule clinic upon discharge given his smoking history -advised f/u CT Chest 6 months-will get him set up with PCP encouraged smoking cessation (5) Tobacco use disorder: Chronic - Counseled on importance of cessation - Nicotine patch will be provided and encouraged patch and lozenges/gum on discharge Plan Polycythemia vs hemochromatosis? -pt reports h/o elevated hgb and would get periodic blood letting. Hgb here 14-15 Advised to get established with PCP for further f/u and to quit smoking Dispo-dc to home Total Time Total Time Spent Total Time Spent (In Minutes): 35 min Discharge Plan Discharge Items Patient Disposition: Home - Self-Care Reason For Visit: CHEST PAIN, TOOTH PAIN Discharge Diagnosis: Dental abscess/infection Condition on Discharge: Fair Activity: Resume your previous activity Non-emergency contact: Primary Care Provider and Surgeon Call non-emergency contact if: you have any medication questions, your symptoms worsen, your pain is not controlled, your pain is worsening, you have a fever and your temperature is above 101 Follow-up/Referrals: PCP,NO [Primary Care Provider] - Diet: Regular Diet Texture: Easy to Chew Addtl Attending Provider Instructions: Please continue taking the antibiotic called Augmentin twice a day for 10 more days. Keep your follow up appointment with the oral surgeon as you need all your teeth removed. You were found to have a small nodule in your right lung and you will need a repeat CT scan of the chest n 6 months to follow up on this. We will get you set up with a new primary care doctor with whom to follow. Pending Studies at Discharge: Yes Studies:: Final blood culture results-no growth to date Stand-Alone Forms: My [employer] [place], Smoking Cessation Medications and DC Order Prescriptions: New nicotine [Nicoderm CQ] 21 mg/24 hr Patch 24 Hour 21 mg transdermal QAM Qty: 14 0RF Rx Instructions: OTC acetaminophen [Tylenol Extra Strength] 500 mg Tablet 1,000 mg PO Q8H PRN (Reason: pain) Qty: 30 0RF Rx Instructions: OTC amoxicillin-pot clavulanate 875-125 mg tablet 1 tab PO BID Qty: 20 0RF Discontinued penicillin V potassium 500 mg tablet 500 mg PO BID Rx Instructions: As of 07/09/2022 pt has only taken 2 doses of the medication had 6 days left. Discharge Orders: Discharge Order (Routine); Ordered 07/11/22 Ordered By: Flaquita Ryan Admission Data Admit Date/Time: 07/10/22 10:22 Attending Provider: Flaquita Ryan Admit Provider: Hesham eKlly Primary Care Provider: PCP,NO Other Providers: Hesham Kelly ; Moshe Trevino Coding Level of Care Code 79524 INP/OBS DISCH >30 MIN Diagnoses Acute osteomyelitis of maxilla M27.2 Chest pain R07.9 Hypokalemia E87.6 Pulmonary nodules R91.8 Tobacco use disorder F17.200
== END 2022-07-11 15:35 | disposition home or self-care (01) | DRG 159 ==
LOC: ED 05:57 → SUATTDRO 10:22 → 3N 10:22